=== PATIENT | female | born 1990 | race African-American/Black ===

== ENCOUNTER 2018-09-28 14:20 | Emergency (ER) | payer BC, OTHER ==
[~2018-09-28] VITALS: Ht 160 cm; Wt 63.5 kg
[~2018-09-28 14:20] MED LIST: AMOXICILLIN 50500 M1 PO; NOHOMEMEDICATIONS; TESSALON PERLE100 MG PO; TESSALON200 MG PO; TYLENOL325 MG PO; ZPAK PO; [UNRECOGNIZED DRUG - OTHER]
[2018-09-28] MEDS ORDERED: TESSALON PERLE100 MG PO (15:58)
[2018-09-28] MEDS ORDERED: NAPROSYN500 MG PO (15:58)
[2018-09-28 16:22] VITALS: BP 129/84
== END 2018-09-28 16:22 | disposition home or self-care (01) ==
LOC: ER 14:20
DX: J04.0 Acute laryngitis (principal); B34.9 Viral infection, unspecified; R19.7 Diarrhea, unspecified; R11.0 Nausea; F17.210 Nicotine dependence, cigarettes, uncomplicated

== ENCOUNTER 2018-12-30 12:06 | Emergency (ER) | payer BC, OTHER ==
[~2018-12-30 12:06] MED LIST changes: +NAPROSYN500 MG PO
[2018-12-30 12:43] VITALS: BP 116/78
== END 2018-12-30 13:33 | disposition home or self-care (01) ==
LOC: ER 12:06
DX: Z53.21 Procedure and treatment not carried out due to patient leaving prior to being seen by health care provider (principal)

== ENCOUNTER 2019-01-20 18:02 | Emergency (ER) | payer BC, OTHER ==
[~2019-01-20] VITALS: Ht 160 cm; Wt 60.3 kg
[2019-01-20 18:59] LABS: ABSOLUTE NEUTROPHILS 8.9 thou/uL (1.4-8.2); BASOPHILS 0.8 % (0.0-2.0); EOSINOPHILS 0.9 % (0.0-3.0); HEMATOCRIT 38.4 % (37.0-47.0); HEMOGLOBIN 13.2 gm/dL (12.0-15.0); LYMPHOCYTES 17.5 % (24.0-44.0); MCH 30.8 pg (26.0-34.0); MCHC 34.3 g/dL (28.0-37.0); MCV 89.8 fL (80.0-100.0); MONOCYTES 6.1 % (1.0-8.0); PLATELET COUNT 241 thou/uL (150-400); POLYS 74.7 % (36.0-66.0); RBC 4.28 mil/uL (4.20-5.00); RDW 13.8 % (10.5-14.5)
[2019-01-20 19:08] LABS: CALCIUM 8.9 mg/dL (8.5-10.1); CREATININE 0.8 mg/dL (0.6-1.0); POTASSIUM 3.7 mmol/L (3.5-5.1)
[2019-01-20 19:14] LABS: ALBUMIN 3.9 g/dL (3.4-5.0); TOTAL BILIRUBIN 0.3 mg/dL (<0.1-1.0)
[2019-01-20 19:43] LABS: URINE BILIRUBIN NEGATIVE (Negative); URINE BLOOD NEGATIVE (Negative); URINE CLARITY CLEAR; URINE COLOR YELLOW; URINE GLUCOSE-RANDOM* NEGATIVE (Negative); URINE KETONES NEGATIVE (Negative); URINE LEUKOCYTES-REFLEX NEGATIVE (Negative); URINE NITRITE-REFLEX NEGATIVE (Negative); URINE PROTEIN (DIPSTICK) NEGATIVE (Negative); URINE SPECIFIC GRAVITY 1.025 (1.005-1.035); URINE UROBILINOGEN 0.2 E.U./dl (0.2-1.0)
[2019-01-20] MEDS ORDERED: MOBIC15 MG PO (21:20)
[2019-01-20 21:24] VITALS: BP 130/86
== END 2019-01-20 21:41 | disposition home or self-care (01) ==
LOC: ER 18:02
PROVIDERS: Physician Assistant
DX: R10.30 Lower abdominal pain, unspecified (principal); F17.210 Nicotine dependence, cigarettes, uncomplicated

== ENCOUNTER 2019-01-27 18:49 | Emergency (ER) | payer BC, OTHER ==
[~2019-01-27] VITALS: Ht 160 cm; Wt 60.3 kg
[~2019-01-27 18:49] MED LIST changes: +MOBIC15 MG PO
[2019-01-27] MEDS ORDERED: KEFLEX500 M1 PO (19:52)
[2019-01-27 19:59] VITALS: BP 112/63
== END 2019-01-27 20:04 | disposition home or self-care (01) ==
LOC: ER 18:49
DX: S60.221A Contusion of right hand, initial encounter (principal); L03.113 Cellulitis of right upper limb; F17.210 Nicotine dependence, cigarettes, uncomplicated; Y08.89XA Assault by other specified means, initial encounter; Y93.89 Activity, other specified; Y92.89 Other specified places as the place of occurrence of the external cause; Y99.8 Other external cause status

== ENCOUNTER 2019-03-04 10:27 | Emergency (ER) | payer BC ==
[~2019-03-04] VITALS: Ht 160 cm; Wt 60.3 kg
[~2019-03-04 10:27] MED LIST changes: +KEFLEX500 M1 PO
[2019-03-04 10:31] VITALS: BP 137/87
== END 2019-03-04 11:51 | disposition home or self-care (01) ==
LOC: ER 10:27
DX: J06.9 Acute upper respiratory infection, unspecified (principal); F17.210 Nicotine dependence, cigarettes, uncomplicated

== ENCOUNTER 2019-07-19 00:02 | Emergency (ER) | payer OTHER ==
[~2019-07-19] VITALS: Ht 172.7 cm; Wt 64.9 kg
[2019-07-19 00:36] LABS: EOSINOPHILS 0.9 % (0.0-3.0); HEMOGLOBIN 13.8 gm/dL (12.0-15.0); WBC 5.3 thou/uL (4.0-11.0)
[2019-07-19 00:38] LABS: ABSOLUTE NEUTROPHILS 2.2 thou/uL (1.4-8.2); BASOPHILS 1.5 % (0.0-2.0); HEMATOCRIT 41.5 % (37.0-47.0); LYMPHOCYTES 47.7 % (24.0-44.0); MCHC 33.2 g/dL (28.0-37.0); MCV 93.2 fL (80.0-100.0); MONOCYTES 8.6 % (1.0-8.0); PLATELET COUNT 266 thou/uL (150-400); POLYS 41.3 % (36.0-66.0); RBC 4.46 mil/uL (4.20-5.00); RDW 14.5 % (10.5-14.5)
[2019-07-19 00:52] LABS: ANION GAP 13 mmol/L (7-16); BUN 3 mg/dL (7-18); CALCIUM 8.3 mg/dL (8.5-10.1); CHLORIDE 102 mmol/L (98-107); CO2 27 mmol/L (21-32); CREATININE 0.8 mg/dL (0.6-1.0); GLUCOSE 100 mg/dL (74-106); POTASSIUM 3.2 mmol/L (3.5-5.1); SODIUM 142 mmol/L (136-145)
[2019-07-19 00:58] LABS: ALBUMIN 4.5 g/dL (3.4-5.0); SALICYLATE 5.8 mg/dL (2.8-20.0); SGOT 35 U/L (15-37); SGPT 29 U/L (30-65); TOTAL BILIRUBIN 0.1 mg/dL (<0.1-1.0); TOTAL PROTEIN 8.9 g/dL (6.4-8.2)
[2019-07-19] MEDS ORDERED: TRAMADOL 50 MG50 MG PO (01:42)
[2019-07-19] MEDS ORDERED: NAPROSYN500 MG PO (01:42)
[2019-07-19 02:13] LABS: URINE BILIRUBIN NEGATIVE (Negative); URINE BLOOD 2+ (Negative); URINE CLARITY CLEAR; URINE COLOR YELLOW; URINE GLUCOSE-RANDOM* NEGATIVE (Negative); URINE KETONES NEGATIVE (Negative); URINE LEUKOCYTES-REFLEX NEGATIVE (Negative); URINE NITRITE-REFLEX NEGATIVE (Negative); URINE PROTEIN (DIPSTICK) TRACE (Negative); URINE UROBILINOGEN 0.2 E.U./dl (0.2-1.0)
[2019-07-19 02:23] LABS: AMP/METHAMP Negative (Negative); BARBITURATES Negative (Negative); BENZODIAZEPINES Negative (Negative); COCAINE Negative (Negative); METHADONE Negative (Negative); OPIATES Negative (Negative); PCP Negative (Negative)
[2019-07-19 02:29] LABS: BACTERIA-REFLEX None Seen /HPF (None Seen); CASTS None Seen /LPF (None Seen); CRYSTALS None Seen /LPF (None Seen); MUCUS None Seen strn/LPF (None Seen); SQUAMOUS 0-3 Few /LPF (0-3); URINE RBC 0-2 Rare /HPF (0-2); URINE WBC-REFLEX None Seen /HPF (0-5)
[2019-07-19 02:45] VITALS: BP 131/80
== END 2019-07-19 02:57 | disposition home or self-care (01) ==
LOC: ER 00:02
PROVIDERS: Emergency Medicine
DX: S01.111A Laceration without foreign body of right eyelid and periocular area, initial encounter (principal); F10.129 Alcohol abuse with intoxication, unspecified; F17.210 Nicotine dependence, cigarettes, uncomplicated; Y04.8XXA Assault by other bodily force, initial encounter; Y93.89 Activity, other specified; Y92.89 Other specified places as the place of occurrence of the external cause; Y99.8 Other external cause status; Y90.8 Blood alcohol level of 240 mg/100 ml or more

== ENCOUNTER 2019-07-27 20:07 | Emergency (ER) | payer OTHER ==
[~2019-07-27] VITALS: Ht 160 cm; Wt 60.3 kg
[~2019-07-27 20:07] MED LIST changes: +TRAMADOL 50 MG50 MG PO
[2019-07-27 20:45] VITALS: BP 130/94
== END 2019-07-27 20:45 | disposition home or self-care (01) ==
LOC: ER 20:07
DX: S01.111D Laceration without foreign body of right eyelid and periocular area, subsequent encounter (principal); F17.210 Nicotine dependence, cigarettes, uncomplicated; X58.XXXD Exposure to other specified factors, subsequent encounter

== ENCOUNTER 2019-08-16 09:46 | Emergency (ER) | payer BC, OTHER ==
[~2019-08-16] VITALS: Ht 160 cm; Wt 63.5 kg
[2019-08-16] MEDS ORDERED: TESSALON PERLE100 MG PO (11:13)
[2019-08-16] MEDS ORDERED: MEDROLDOSEPACK PO (11:13)
[2019-08-16] MEDS ORDERED: PROAIR HFA8.5 GM INH (11:13)
[2019-08-16 11:29] VITALS: BP 122/86
== END 2019-08-16 11:33 | disposition home or self-care (01) ==
LOC: ER 09:46
DX: J06.9 Acute upper respiratory infection, unspecified (principal); R19.7 Diarrhea, unspecified; R50.9 Fever, unspecified; F17.210 Nicotine dependence, cigarettes, uncomplicated